=== PATIENT | male | born 1990 | race Caucasian/White ===

== ENCOUNTER 2021-11-20 12:20 | Emergency (ER) | payer MEDICAID ==
[2021-11-20 12:36] VITALS: BP 137/75
[2021-11-20] MEDS ORDERED: LIDOCAINE 1%-EPI 1:100000 20 ML MDV SUBQ STA (12:42)
[2021-11-20] MEDS ORDERED: cephALEXin 250 MG CAPSULE PO STA (12:42)
[2021-11-20] MEDS ORDERED: SULFAMETH/TRIMETH DS 800/160 MG TABLET PO STA (12:42)
--- NOTE | 2021-11-20 12:46 | ED Physician Documentation ---
PD HPI WOUND RECHECK - Stated complaint Stated Complaint: FACE SWELLING - Chief complaint Chief Complaint: Wound - Histroy obtained from History obtained from: Patient (Otherwise healthy 30-year-old gentleman has always had a small lump on the left forehead which of the last few days has become inflamed and then he developed reactive facial swelling. No fevers.) Review of Systems Constitutional: denies: Fever, Chills Eyes: reports: Reviewed and negative Nose: reports: Reviewed and negative Throat: reports: Reviewed and negative PD PAST MEDICAL HISTORY - Present Medications Home Medications: Ambulatory Orders Medication Instructions Recorded Confirmed Sulfamethox/Trimeth 800/160 1 each PO BID #14 tablet 11/20/21 [Bactrim Ds 800/160] cephALEXin [Keflex] 500 mg PO Q6H #28 cap 11/20/21 - Allergies Allergies/Adverse Reactions: Allergies Allergy/AdvReac Type Severity Reaction Status Date / Time No Known Drug Allergies Allergy Verified 11/20/21 12:36 PD ED PE NORMAL - Vitals Vital signs reviewed: Yes - General General: Alert and oriented X 3, No acute distress - HEENT HEENT: PERRL, EOMI, Other (He has the appearance of infected cyst or abscess to the left upper forehead with reactive cellulitis causing some swelling in the left periorbital area as well.) - Neuro Neuro: Alert and oriented X 3, managed care nurse 2-12 intact Eye Opening: Spontaneous Motor: Obeys Commands Verbal: Oriented GCS Score: 15 Results - Vitals Vitals: Vital Signs - 24 hr 11/20/21 12:32 Temperature 36.9 C Heart Rate 61 Respiratory 16 Rate Blood Pressure 137/75 H O2 Saturation 99 Oxygen O2 Source Room air Procedures - Abscess I&D (location) L forehead Preparation: Lidocaine 1% (superior orbital nerve block), With epi Incision: Incised with scalpel, Purulent drainage (with sebum), Loculations broken Other: Pt tolerated well, Dressing applied, Antibiotic prescribed Departure - Departure Disposition: 01 Home, Self Care Clinical Impression: Infected sebaceous cyst Condition: Good Record reviewed to determine appropriate education?: Yes Instructions: ED Abscess IandD Prescriptions: Sulfamethox/Trimeth 800/160 [Bactrim Ds 800/160] 1 each PO BID #14 tablet cephALEXin [Keflex] 500 mg PO Q6H #28 cap Comments: I sent your prescription to [facility] in [place] located at: [id number] [facility], [address] You are seen today for an infected sebaceous cyst of the left side of the forehead with reactive cellulitis. I have performed an incision and drainage and we are putting you on 2 antibiotics. There is a wound culture pending, given that you were visiting from out of town I like you to return on Thursday for wound check and culture review. Certainly sooner if worsening. I suspect the swelling will start to go down between the antibiotics and the drainage in the meantime though.
== END 2021-11-20 13:15 | disposition home or self-care (01) ==
LOC: ED 12:20
DX: B43.2 Subcutaneous pheomycotic abscess and cyst (principal)
CPT/HCPCS: 10060; 87070; 87205; 99282; 99283; A9270; 87181

== ENCOUNTER 2021-11-22 13:58 | Emergency (ER) | payer MEDICAID ==
[2021-11-22 14:08] VITALS: BP 146/79
--- NOTE | 2021-11-22 14:14 | ED Physician Documentation ---
PD HPI SKIN - Stated complaint Stated Complaint: follow up/head injury - Chief complaint Chief Complaint: Wound - History obtained from History obtained from: Patient - Additional information Additional information: 30-year-old gentleman presents for scheduled recheck of infected sebaceous cyst with facial cellulitis. Doing much better with decreased swelling. Still some drainage from the wound but no fevers. In the interim his culture grew normal skin lex. Review of Systems Constitutional: denies: Fever, Chills Eyes: reports: Reviewed and negative Nose: reports: Reviewed and negative Cardiac: reports: Reviewed and negative PD PAST MEDICAL HISTORY - Present Medications Home Medications: Ambulatory Orders Medication Instructions Recorded Confirmed Sulfamethox/Trimeth 800/160 1 each PO BID #14 tablet 11/20/21 11/22/21 [Bactrim Ds 800/160] cephALEXin [Keflex] 500 mg PO Q6H #28 cap 11/20/21 11/22/21 - Allergies Allergies/Adverse Reactions: Allergies Allergy/AdvReac Type Severity Reaction Status Date / Time No Known Drug Allergies Allergy Verified 11/22/21 14:08 PD ED PE NORMAL - Vitals Vital signs reviewed: Yes - General General: Alert and oriented X 3, No acute distress - HEENT HEENT: Other (There is still a pinpoint hole with just a touch of purulent drainage on the left forehead but the cellulitis is all but gone.) - Neuro Neuro: Alert and oriented X 3, Normal speech Results - Vitals Vitals: Vital Signs - 24 hr 11/22/21 14:06 Temperature 36.7 C Heart Rate 71 Respiratory 16 Rate Blood Pressure 146/79 H O2 Saturation 98 Oxygen O2 Source Room air Departure - Departure Disposition: 01 Home, Self Care Clinical Impression: Infected sebaceous cyst Condition: Good Record reviewed to determine appropriate education?: Yes Instructions: ED Abscess IandD Comments: As discussed, the culture grew "normal skin lex". I think you can stop the Bactrim/trimethoprim sulfamethoxazole (the twice a day antibiotic). I would continue the 4 times a day antibiotic (Keflex/cephalexin). If you still feel a lump there when you get home consider following up with a steel wool machine operator or plastic or general surgeon for definitive removal of the se baceous cyst.
== END 2021-11-22 14:17 | disposition home or self-care (01) ==
LOC: ED 13:58
DX: B43.2 Subcutaneous pheomycotic abscess and cyst (principal)
CPT/HCPCS: 99281